=== PATIENT | male | born 2000 | race Caucasian/White ===

== ENCOUNTER 2024-07-17 16:47 | Emergency (ER) | payer BC ==
[~2024-07-17] VITALS: Ht 193 cm; Wt 83.5 kg
[2024-07-17 16:54] VITALS: BP_SYST 133; PULSE 76; RESP 17; TEMP 98.3; O2SAT 99
[2024-07-17] MEDS ORDERED: DIATR MEGLU/DIATRIZ SOD 30 ML SOLUTION PO ONE (17:58)
[2024-07-17 19:29] VITALS: TEMP 97.9
[2024-07-17 21:28] VITALS: BP_SYST 125; PULSE 63; RESP 20; O2SAT 99
== END 2024-07-17 21:28 | disposition home or self-care (01) ==
LOC: SED 16:47
DX: R09.A2 Foreign body sensation, throat (principal); Z88.1 Allergy status to other antibiotic agents; Z88.8 Allergy status to other drugs, medicaments and biological substances
CPT/HCPCS: 71250-TC; 99284; Q9964